=== PATIENT | male | born 2005 | race African-American/Black ===

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

== ENCOUNTER 2024-10-12 17:56 | Emergency (ER) | payer OTHER ==
[2024-10-12 18:04] VITALS: BP 126/76; PULSE 62; RESP 20; TEMP 98.6; BMI 23.0
[2024-10-12] MEDS ORDERED: MIDAZOLAM HCL 5 MG/1 ML Single Dose Vial ONE ×2 (19:31→19:45)
[2024-10-12] MEDS: MIDAZOLAM HCL 5 MG/1 ML Single Dose Vial IM ONE ×2 (19:33→20:03)
[2024-10-12] MEDS ORDERED: KETOROLAC TROMETHAMINE 15 MG/ML VIAL ONE (19:46)
[2024-10-12] MEDS: KETOROLAC TROMETHAMINE 15 MG/ML VIAL IM ONE (20:01)
== END 2024-10-12 22:23 | disposition home or self-care (01) ==
LOC: JER 17:56
PROC: 0RSKXZZ Reposition Left Shoulder Joint, External Approach (ICD-10-PCS; principal; 2024-10-12)
PROC: 3E023GC Introduction of Other Therapeutic Substance into Muscle, Percutaneous Approach (ICD-10-PCS; 2024-10-12)
PROC: 3E023GC Introduction of Other Therapeutic Substance into Muscle, Percutaneous Approach (ICD-10-PCS; 2024-10-12)
PROC: 3E023GC Introduction of Other Therapeutic Substance into Muscle, Percutaneous Approach (ICD-10-PCS; 2024-10-12)
DX: S43.005A Unspecified dislocation of left shoulder joint, initial encounter (principal); W16.511A Jumping or diving into swimming pool striking water surface causing drowning and submersion, initial encounter; Y93.11 Activity, swimming
CPT/HCPCS: 73030-TC-LT-FY; 99284-25